=== PATIENT | female | born 1990 | race Caucasian/White ===

== ENCOUNTER 2018-09-24 05:37 | Emergency (ER) | payer SELFPAY ==
[~2018-09-24] VITALS: Ht 152.4 cm; Wt 62.7 kg
[2018-09-24] MEDS ORDERED: TraMADol HCL 50 MG TABLET PO ONE (06:45)
[2018-09-24 06:51] VITALS: BP 136/68
== END 2018-09-24 06:53 | disposition home or self-care (01) ==
LOC: EMS 05:40
DX: S03.2XXA Dislocation of tooth, initial encounter (principal); Z88.5 Allergy status to narcotic agent; W22.8XXA Striking against or struck by other objects, initial encounter; Y93.89 Activity, other specified; Y92.89 Other specified places as the place of occurrence of the external cause; Y99.8 Other external cause status